=== PATIENT | female | born 1955 | race Caucasian/White ===

== ENCOUNTER 2019-08-11 09:43 | Day surgery (SDC) | payer BC, SELFPAY ==
[2019-08-08 11:27] VITALS: BMI 39.1
[2019-08-11] VITALS (9 sets, daily range): BP systolic 108–141; BP diastolic 49–76; PULSE 67–75; RESP 18–20; TEMP 36.4–36.6; O2SAT 96–99
--- NOTE | 2019-08-11 10:23 | HMH.ANESCL ---
[facility] Anesthesia Checklist - Patient Identification Patient Identification: Arm Band - Structural Data Admitted From: Home Planned Operative Procedure/s: egd/colonoscopy Consent for Planned Operative Procedure(s) Verified: Yes Verified Documents: Surgical Consent, History and Physical - NPO Status Verified Time NPO: 00:00 - Additional verifications Anesthesia Reactions: No - Airway Assessment C-Spine Mobility Assessed: Yes (mp2) TMJ Mobility Assessed: Yes Dentition: Good Dentition - Neurological Assessment Level of Consciousness: Awake, Alert - Anesthesia Plan Anesthesia Risk discussed: Yes Anesthesia Plan: Verified ASA Class: III Anesthesia Type: MAC [facility] History I have reviewed the patient's past medical history: Yes Medical History: Reports:: Anxiety, Arrhythmia, Coronary Artery Disease, Hyperlipidemia, Hypertension Denies:: Cancer, Diabetes Mellitus Type 1, Diabetes Mellitus Type 2, Internal Pacemaker, MRSA, Seizures *Have you ever received a pneumonia vaccine?: Yes *Have you received a flu vaccine this season?: Yes Other Medical History: Reports: Hypothyroidism Anesthesia experience/problems:: nac Other Surgeries: Yes: Hysterectomy-Total, Thyroidectomy, Other. No: Pacemaker Amputation: No Fractures: No - *Social History Educational Level: Completed College Smoking Status: Never smoker Tobacco Type: cigarettes Smoking End Date: 07/18/1997 Alcohol Intake: current Alcohol Intake Frequency:: holidays/special occasions only Substance Use Type: denies use *Occupational Status:: employed Housing: house Household Members: spouse *Travel in the last 8 weeks: None Family Hx:: Cancer
--- NOTE | 2019-08-11 10:51 | HMH.PROC ---
[place] Procedure Note Procedure Note:: Upper Endoscopy Procedure Report: Esophagogastroduodenoscopy with cold biopsies and TTS balloon dilation Endoscopost: Rodo Cruz II, MD Referring Physician: Cristela Peck MD Date of Procedure: August 11, 2019 Equipment: Olympus GIF 180 standard upper endoscope Sedation: MAC sedation Indications: Mrs. Chambers is a 63-year-old female with intermittent right upper quadrant abdominal pain under the rib cage. This may radiate into the right shoulder blade. She states that she will get this for 3 or 4 days and then have no symptoms for 3 or 4 days. She did have an ultrasound of the right upper quadrant and gallbladder on June 03, 2019 and this did show fatty liver/steatosis but no gallstones or gallbladder wall thickening. There was no evidence of cholecystitis. The patient does have chronic digestive difficulties and bloating. She does state that if she eats salads she will have bowel irregularity. She mostly is regular but has a bowel movement every other day. She feels as if she evacuates. She does get some belching which is normal for her. She reports no gassiness. Cold foods such as ice cream can result in midsternal chest pain and radiate into the back (esophagospasm). She does have some intermittent reflux. She also has some intermittent dysphagia and early satiety. She states that she has 2 sisters and a mother with gallbladder disease requiring cholecystectomy. She had a colonoscopy with in 2008. She had another colonoscopy with Dr. Ernie Leung 5 or 6 years ago which was reportedly normal. Her recent lab work showed normal liver chemistries (AST 17, ALT 12 and alkaline phosphatase 75). She reports no melena or weight loss. She reports no fever or chills. She has not had a CAT scan or HIDA scan. Procedure: Prior to the procedure, a history and physical exam was performed, and patient's medications and allergies were reviewed. The risks, benefits and alternatives of the sedation and procedure were discussed with the patient. All questions were answered and informed consent was obtained. The patient was brought to the procedure room. Patient identification and proposed procedure were verified by the physician and the nurse. The patient was placed in a left lateral decubitus position and the scope was passed under direct vision. Throughout the procedure, the patient's blood pressure, pulse, and oxygen saturations were monitored continuously. The upper GI endoscopy was accomplished without difficulty. The patient tolerated the procedure well. Findings: The scope was passed directly into the upper esophagus and advanced to the third portion of the duodenum. The post bulbar duodenum and duodenal bulb were normal with normal mucosa and conniventes. The ampulla appeared to be normal in size and there was some bile exuding into the duodenum. The scope was withdrawn through a normal duodenal bulb and pylorus into the stomach. There was bile reflux with linear reactive gastropathy of the antrum of the stomach. The remainder of the antrum, body and fundus of the stomach were grossly normal. Upon retroflexion there was no hiatal hernia. 2 biopsies were taken in the antrum and along the lesser curvature for histology to rule out gastritis and/or H pylori. The scope was then withdrawn into the esophagus. There was no evidence of reflux esophagitis, Contreras's or Schatzki's ring. There were tertiary contractions and evidence of moderate esophageal dysmotility. The entire esophagus was dilated to 60 [place]/20 mm with a TTS hydrostatic balloon. There was evidence of cricopharyngeal spasm/cricopharyngeal resistance with dilation. The remainder of the esophageal mucosa was normal. Impression: 1. Cricopharyngeal spasm status post dilation to 20 mm 2. Nonerosive GERD with moderate esophageal dysmotility 3. Bile reflux with linear reactive gastropathy Plan: I will follow-up the biopsies. I do
--- NOTE | 2019-08-11 11:26 | HMH.PROC ---
[facility] Procedure Note Procedure Note:: Colonoscopy Procedure Report: Colonoscopy with cold snare polypectomy Endoscopist: Rodo Cruz II, MD Referring physician: Cristela Peck MD Date of Procedure: August 11, 2019 Equipment: Olympus 180 variable stiffness pediatric colonoscope Sedation: MAC sedation Indication: Mrs. Chambers is a 63-year-old female with intermittent right upper quadrant abdominal pain under the rib cage. This may radiate into the right shoulder blade. She states that she will get this for 3 or 4 days and then have no symptoms for 3 or 4 days. She did have an ultrasound of the right upper quadrant and gallbladder on June 03, 2019 and this did show fatty liver/steatosis but no gallstones or gallbladder wall thickening. There was no evidence of cholecystitis. The patient does have chronic digestive difficulties and bloating. She does state that if she eats salads she will have bowel irregularity. She mostly is regular but has a bowel movement every other day. She feels as if she evacuates. She does get some belching which is normal for her. She reports no gassiness. Cold foods such as ice cream can result in midsternal chest pain and radiate into the back (esophagospasm). She does have some intermittent reflux. She also has some intermittent dysphagia and early satiety. She states that she has 2 sisters and a mother with gallbladder disease requiring cholecystectomy. She had a colonoscopy with in 2008. She had another colonoscopy with Dr. Ernie Leung 5 or 6 years ago which was reportedly normal. Her recent lab work showed normal liver chemistries (AST 17, ALT 12 and alkaline phosphatase 75). She reports no melena or weight loss. She reports no fever or chills. She has not had a CAT scan or HIDA scan. Procedure: Prior to the procedure, a history and physical exam was performed, and patient's medications and allergies were reviewed. The risks, benefits and alternatives of the sedation and procedure were discussed with the patient. All questions were answered and informed consent was obtained. The patient was brought to the procedure room. Patient identification and proposed procedure were verified by the physician and the nurse. The patient was placed in a left lateral decubitus position and the scope was passed under direct vision. Throughout the procedure, the patient's blood pressure, pulse, and oxygen saturations were monitored continuously. The colonoscopy was accomplished without difficulty. The patient tolerated the procedure well. Findings: On digital rectal examination there was normal rectal tone. There were no external hemorrhoids. The colonoscope was introduced through the anal canal to the rectum and advanced to the cecum. The ileocecal valve and appendiceal orifice were identified. The scope was advanced a short distance into the ileum which appeared grossly normal. The scope was then withdrawn into the colon. The cecum was normal. There was angulation at the hepatic flexure suggestive of hepatic flexure syndrome. There was an 8 to 9 mm polyp in the ascending colon. There were 2 polyps in the transverse colon that were 3 and 5 mm. There were 2 polyps in the descending colon that were 3 and 5 mm. All of the 5 polyps were removed via cold snare polypectomy. The remainder of the ascending, transverse, descending, sigmoid and rectum were grossly normal. Upon retroflexion within the rectum there were grade 1 internal hemorrhoids.The preparation was excellent throughout with [place] Preparation Score of 9. The cecal time was 17 minutes. Impression: 1. Colonic polyps x5 (ranging in size from 3 to 9 mm) 2. 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 Grade 1 internal hemorrhoids Plan: I will discuss the findings with patient and family. I do feel that the patient's pain is secondary to hepatic flexure syndrome. I would continue the dietary measures and initiate a fiber bowel regimen. I would consider
== END 2019-08-11 12:30 | disposition home or self-care (01) ==
LOC: OUTP 09:45
PROVIDERS: PCP Family Medicine; Visit Provider Internal Medicine Gastroenterology
PROC: 0DJ08ZZ Inspection of Upper Intestinal Tract, Via Natural or Artificial Opening Endoscopic (ICD-10-PCS; CPT 43235; principal; 2019-08-11 10:30)
DX: R10.11 Right upper quadrant pain (principal); K21.9 Gastro-esophageal reflux disease without esophagitis; K22.4 Dyskinesia of esophagus; D12.2 Benign neoplasm of ascending colon; D12.4 Benign neoplasm of descending colon; D12.3 Benign neoplasm of transverse colon; K64.0 First degree hemorrhoids; K59.8 Other specified functional intestinal disorders
CPT/HCPCS: 43239; 43249; 45385; C1726

== ENCOUNTER → 2019-12-18 10:04 | Outpatient (CLI) | payer BC, SELFPAY | PROVIDERS: PCP Family Medicine; Visit Provider Nurse Practitioner Family | DX: R10.11 Right upper quadrant pain (principal) ==

== ENCOUNTER → 2019-12-21 08:52 | Outpatient (CLI) | payer BC, SELFPAY ==
--- NOTE | 2019-12-21 08:56 | US_ITS ---
PROCEDURE: US ABDOMEN LIMITED CLINICAL INDICATION: RUQ PAIN COMPARISON: No exams were available for comparison FINDINGS: PANCREAS: Unremarkable. No obvious mass or abnormal fluid collection. No ductal dilatation LIVER: Diffuse increased echogenicity of the liver with poor through transmission of sound consistent with hepatic steatosis. No focal liver lesion demonstrated. There is appropriate direction of blood flow within non dilated portal vein. RIGHT KIDNEY: Unremarkable. Normal size and echogenicity. No hydronephrosis GALLBLADDER: No definite shadowing stones are evident. There is some mild sludge within the gallbladder but no shadowing mobile stones apparent. No gallbladder wall thickening pericholecystic fluid or biliary dilatation. Common bile duct is 3 mm. IMPRESSION: Fatty liver with gallbladder sludge Dictated by: Richie Carmichael MD 12/21/2019 09:56 Richie Carmichael MD in [place] 12/21/2019 09:56
--- NOTE | 2019-12-21 08:59 | NM_ITS ---
PROCEDURE: NM HEPATOBILIARY W PHARM CLINICAL INDICATION: DYSPEPSIA,RUQ PAIN,ESOPHAGEAL CHEST PAIN, COMPARISON: US US ABDOMEN LIMITED from 12/21/2019 TECHNIQUE: DOSE: 8.67 mCi technetium Choletec and 2.3 mcg of CCK FINDINGS: Homogeneous activity is present within the hepatic parenchyma. Activity is present in the gallbladder by 10 minutes. Activity is present in the small bowel by 45 minutes. The gallbladder ejection fraction is calculated to be 24 percent. There was mild pain reported with CCK infusion.. IMPRESSION: No evidence of common or cystic duct obstruction. Gallbladder ejection fraction is slightly low at 24 percent with normal being greater than 35 percent and there was mild pain reported with CCK infusion which may indicate gallbladder dyskinesia. Dictated by: Richie Carmichael MD 12/22/2019 11:41 Richie Carmichael MD in [place] 12/22/2019 11:41
--- NOTE | 2019-12-21 12:40 | HMH.ITSHM ---
Current Home Medications as stated by this patient Farida Chambers or quality audit representative. [] WELLBUTRIN ATENOLOL TOPAMAX PRACHEL LISINOPRIL LEVOTHYROXINE ZETIA
== END ==
PROVIDERS: PCP Family Medicine; Visit Provider Nurse Practitioner Family
DX: R10.11 Right upper quadrant pain (principal)
CPT/HCPCS: 76705; 78227; A9537; J2805